=== PATIENT | female | born 1980 | race Caucasian/White ===

== ENCOUNTER → 2018-05-24 | Outpatient (CLI) | payer BC ==
[~2018-05-24] MED LIST: PRENATAL1 TA1 PO; PRENATAL1 TA6 PO
== END ==
LOC: COL.RAD 09:53
DX: R91.1 Solitary pulmonary nodule (principal)
CPT/HCPCS: Q9967

== ENCOUNTER → 2022-02-26 | Outpatient (CLI) | payer BC ==
[2022-02-26 14:06] LABS: BASO # 0.1 K/mm3 (0.0-0.2); BASO % 0.7 % (0.0-2.0); EOS # 0.1 K/mm3 (0.0-0.7); EOS % 1.7 % (0.0-4.0); GRAN # 5.7 K/mm3 (1.4-6.5); GRAN % 70.1 % (42.2-75.2); HEMATOCRIT 40.1 % (37.0-47.0); LYMPH # 1.9 K/mm3 (1.2-3.4); MEAN CELL VOLUME 86 fl (80.0-100.0); MEAN CORPUSCULAR HEMOGLOBIN 30 pg (27-31); MEAN CORPUSCULAR HGB CONC 35 g/dl (33.0-37.0); MEAN PLATELET VOLUME 9.2 fl (7.4-10.4); MONO # 0.4 K/mm3 (0.1-0.6); MONO % 4.4 % (1.7-9.3); PLATELET COUNT 329 K/mm3 (130-400); RED BLOOD COUNT 4.66 M/mm3 (4.10-5.30)
[2022-02-26 14:19] LABS: ALBUMIN 4.1 gm/dL (3.5-5.0); BILIRUBIN,TOTAL 0.5 mg/dL (0.2-1.2); C-REACTIVE PROTEIN 0.43 mg/dL (0.00-0.50); CALCIUM 9.3 mg/dL (8.4-10.2); CREATININE, serum 0.83 mg/dL (0.57-1.11); POTASSIUM 4.1 mmol/L (3.5-4.5); TOTAL PROTEIN 7.5 gm/dL (6.2-8.1)
[2022-02-26 14:54] LABS: ERYTHROCYTE SEDIMENTATION RATE 7 mm/hr (0-20)
== END ==
LOC: COL.LAB
DX: R10.2 Pelvic and perineal pain (principal); K92.1 Melena